=== PATIENT | female | born 1975 | race Caucasian/White ===

== ENCOUNTER 2021-06-07 08:18 | Emergency (ER) | payer OTHER ==
[2021-06-07] MEDS ORDERED: KEFLEX750 MG PO (10:00)
== END 2021-06-07 10:19 | disposition home or self-care (01) ==
LOC: FER 08:18
DX: S91.201A Unspecified open wound of right great toe with damage to nail, initial encounter (principal); W22.8XXA Striking against or struck by other objects, initial encounter; Y92.009 Unspecified place in unspecified non-institutional (private) residence as the place of occurrence of the external cause

== ENCOUNTER → 2022-07-04 | Day surgery (SDC) | payer OTHER ==
[~2022-07-04] VITALS: Ht 172.7 cm; Wt 102.0 kg
[~2022-07-04] MED LIST: KEFLEX750 MG PO; ONE-DAILY MULT1 EACH PO; PROBIOTIC1 EAC2 PO; PROTONIX 40MG T40 MG PO
[2022-07-04 13:49] LABS: BASOPHIL 0.5 % (0-2); EOSINOPHIL 1.2 % (0-5); HCT 41.3 % (37.0-47.0); HGB 13.5 g/dl (12.5-16.0); LYMPHOCYTE 39.9 % (15-48); MCH 29.3 pg (25.0-31.0); MCHC 32.7 g/dL (32.0-36.0); MCV 89.8 fL (78.0-100.0); MONOCYTE 7.6 % (0-12); MPV 10.6 fL (6.0-9.5); NEUTROPHIL 50.6 % (41-80); NRBC 0; PLT 282 K/uL (150-400); RDW 12.2 % (11.5-14.0); WBC 6.1 K/uL (4.0-10.5)
[2022-07-04 15:10] LABS: ALBUMIN 3.1 g/dL (3.4-5.0); BILIRUBIN - TOTAL 0.6 mg/dL (0.2-1.0); BUN/CREAT RATIO (CALC) 18.8 RATIO; CREATININE 0.8 mg/dL (0.51-0.95); GLOBULIN (CALCULATION) 4.1 g/dL; POTASSIUM 4.6 mmol/L (3.5-5.1); TOTAL PROTEIN 7.2 g/dL (6.4-8.2)
== END | disposition home or self-care (01) ==
LOC: FAS 09:56
PROVIDERS: Surgery
DX: K63.5 Polyp of colon (principal); K31.9 Disease of stomach and duodenum, unspecified; K58.0 Irritable bowel syndrome with diarrhea; K21.9 Gastro-esophageal reflux disease without esophagitis; K29.60 Other gastritis without bleeding; K62.1 Rectal polyp
CPT/HCPCS: 36415; 80053; 82150; 83690; 85025; J2704; J7120